=== PATIENT | male | born 1990 | race Caucasian/White ===

== ENCOUNTER 2018-05-10 11:59 | Inpatient (IN) | payer MEDICAID, SELFPAY ==
[2018-05-10 12:16] VITALS: BMI 23.6; BMI 24.0
[2018-05-10 12:39] VITALS: BP 118/57; PULSE 77; RESP 16; TEMP 37.3
[2018-05-10 12:54] VITALS: PULSE 77
--- NOTE | 2018-05-10 13:08 | PCM.HP.STD ---
Problem List (1) Acute opioid withdrawal Status: Acute (2) Asthma Status: Chronic Qualifiers: Asthma severity: mild Asthma persistence: intermittent Asthma complication type: unspecified Qualified Code(s): J45.20 - Mild intermittent asthma, uncomplicated History of Present Illness Date of Admission: 05/10/18 Chief Complaint: Acute opioid withdrawal The patient is a 27 year old M with PMHx of heroin abuse, asthma, alcohol use disorder who comes in with complains of nasal congestion, restlessness, lacrimation, sweating, yawning. Patient admits to using half to 1 g of heroin daily. Last used heroin yesterday. Denies any fever or chills. He feels nauseous but no vomiting, had a couple of loose stools. His admitting CINA score is 16. Per [facility] notes, patient plans to follow-up with inpatient rehabilitation at the [facility] in [facility]. His vitals on admission show temperature of 99.1F, heart rate 77, blood pressure 118/57, respiratory rate is 16. Past Medical History Past Medical History (Chronic Problems): Chronic Problems Asthma (Chronic) Allergies Penicillins Adverse Reaction (Verified 05/10/18 12:18) swell up , hives Home Medications: Ambulatory Orders Medication Instructions Recorded Albuterol Inhaler 1 puff 05/10/18 Surgical History: no surgical history Psychiatric History: No pertinent psych hx Lives: With Family Smoking Status: Current every day smoker Tobacco Use: Cigarettes Alcohol: Occasional Drugs: Heroin, Marijuana - *Family History Maternal History Items: No pertinent history Paternal History Items: No pertinent history Review of Systems Constitutional: Denies: Anorexia, Chills, Fever, Weakness, Weight Change Eyes: Denies: Blurred vision, Cataracts, Pain, Redness HEENT: Denies: Difficulty Swallowing, Head Aches, Hearing Changes, Sinus Congestion, Sinus Drainage Cardiovascular: Denies: Chest Pain, Claudication, Chest Pressure, Orthopnea, Palpitations, Paroxysmal Noc. Dyspnea Respiratory: Denies: Cough, Shortness of breath at rest, Sputum production Gastrointestinal: Denies: Abdominal Pain, Hematemesis, Hematochezia, Nausea, Vomiting Genitourinary: Denies: Dysuria, Frequency, Incontinence Musculoskeletal: Denies: Joint Pain, Joint Tenderness Skin: Denies: Rash, Wounds Neurological: Denies: Numbness, Tingling, Focal weakness Psychiatric: Denies: Anxiety, Depression, Homicidal Ideations, Suicidal Ideations Hematologic/ Lymphatic: Denies: Easy Bruising, Easy Bleeding VTE Information - Inpt Only VTE Present on Admission: No VTE Pharm Prophylaxis ordered?: Yes Patient Problems: Active and Suspected Problems Acute opioid withdrawal (Acute) - Physical Exam General: Alert, Oriented x3, Cooperative, - - looks to be having hot and cold flushes HEENT: Atraumatic, PERRLA, EOMI, Normocephalic Oral: Moist Mucosa Neck: Supple Lungs: Clear to auscultation, Normal air movement Cardiovascular: Regular rate, Regular Rhythm, Normal S1, Normal S2, No murmurs Abdomen: Bowel Sounds Present, Soft, Non Tender, Non-Distended, No Hepato-splenomegaly Extremities: No edema Skin: No rashes, No breakdown Musculoskeletal: No Tenderness to Palpation of Joints or Extremities Lymphatic: No Cervical, Supraclavicular, or Inguinal Adenopathy Neurological: Cranial nerves II-XII grossly intact, Neuro grossly intact Psych/Mental Status: Normal Affect, Appropriate Vital Signs Temp Pulse Resp BP 99.1 F 77 16 118/57 L 05/10/18 12:39 05/10/18 12:54 05/10/18 12:39 05/10/18 12:39 Weight: 79 kg Body Mass Index (BMI) 23.6 Assessment/Plan All Active Problems Acute opioid withdrawal (Acute) 27 year old M with PMHx of heroin abuse, asthma, alcohol use disorder who comes in with complains of nasal congestion, restlessness, lacrimation, sweating, yawning 1. Acute opioid withdrawal, in a known heroin user, Cina score of 16, Plan: Admit to MedSurg, monitor on a [facility] protocol, continue to monitor vitals closely 2. Polysubstance use, advised to quit 3. Nicotine dependence, on nicotine replacement 4. Alcohol use disorder, patient denies being a heavy user, advised to quit, will continue to monitor, if somethings worsen, will add CIWA and alcohol withdrawal protocol. 5. Asthma, no signs of acute exacerbation, will keep on as needed breathing treatments 6. DVT PPx- early ambulation. Code Visit Inpatient E&M: 10043 Init Hosp L2
--- NOTE | 2018-05-10 13:11 | HP.PCM_ITS ---
Problem List (1) Acute opioid withdrawal Status: Acute (2) Asthma Status: Chronic Qualifiers: Asthma severity: mild Asthma persistence: intermittent Asthma complication type: unspecified Qualified Code(s): J45.20 - Mild intermittent asthma, uncomplicated History of Present Illness Date of Admission: 05/10/18 Chief Complaint: Acute opioid withdrawal The patient is a 27 year old M with PMHx of heroin abuse, asthma, alcohol use disorder who comes in with complains of nasal congestion, restlessness, lacrimation, sweating, yawning. Patient admits to using half to 1 g of heroin daily. Last used heroin yesterday. Denies any fever or chills. He feels nauseous but no vomiting, had a couple of loose stools. His admitting CINA score is 16. Per [facility] notes, patient plans to follow- up with inpatient rehabilitation at the [facility] in [facility]. His vitals on admission show temperature of 99.1F, heart rate 77, blood pressure 118/57, respiratory rate is 16. Past Medical History Past Medical History (Chronic Problems): Chronic Problems Asthma (Chronic) Allergies Penicillins Adverse Reaction (Verified 05/10/18 12:18) swell up , hives Home Medications: Ambulatory Orders Medication Instructions Recorded Albuterol Inhaler 1 puff 05/10/18 Surgical History: no surgical history Psychiatric History: No pertinent psych hx Lives: With Family Smoking Status: Current every day smoker Tobacco Use: Cigarettes Alcohol: Occasional Drugs: Heroin, Marijuana - *Family History Maternal History Items: No pertinent history Paternal History Items: No pertinent history Review of Systems Constitutional: Denies: Anorexia, Chills, Fever, Weakness, Weight Change Eyes: Denies: Blurred vision, Cataracts, Pain, Redness HEENT: Denies: Difficulty Swallowing, Head Aches, Hearing Changes, Sinus Congestion, Sinus Drainage Cardiovascular: Denies: Chest Pain, Claudication, Chest Pressure, Orthopnea, Palpitations, Paroxysmal Noc. Dyspnea Respiratory: Denies: Cough, Shortness of breath at rest, Sputum production Gastrointestinal: Denies: Abdominal Pain, Hematemesis, Hematochezia, Nausea, Vomiting Genitourinary: Denies: Dysuria, Frequency, Incontinence Musculoskeletal: Denies: Joint Pain, Joint Tenderness Skin: Denies: Rash, Wounds Neurological: Denies: Numbness, Tingling, Focal weakness Psychiatric: Denies: Anxiety, Depression, Homicidal Ideations, Suicidal Ideations Hematologic/ Lymphatic: Denies: Easy Bruising, Easy Bleeding VTE Information - Inpt Only VTE Present on Admission: No VTE Pharm Prophylaxis ordered?: Yes Patient Problems: Active and Suspected Problems Acute opioid withdrawal (Acute) - Physical Exam General: Alert, Oriented x3, Cooperative, - - looks to be having hot and cold flushes HEENT: Atraumatic, PERRLA, EOMI, Normocephalic Oral: Moist Mucosa Neck: Supple Lungs: Clear to auscultation, Normal air movement Cardiovascular: Regular rate, Regular Rhythm, Normal S1, Normal S2, No murmurs Abdomen: Bowel Sounds Present, Soft, Non Tender, Non-Distended, No Hepato- splenomegaly Extremities: No edema Skin: No rashes, No breakdown Musculoskeletal: No Tenderness to Palpation of Joints or Extremities Lymphatic: No Cervical, Supraclavicular, or Inguinal Adenopathy Neurological: Cranial nerves II-XII grossly intact, Neuro grossly intact Psych/Mental Status: Normal Affect, Appropriate Vital Signs Temp Pulse Resp BP 99.1 F 77 16 118/57 L 05/10/18 12:39 05/10/18 12:54 05/10/18 12:39 05/10/18 12:39 Weight: 79 kg Body Mass Index (BMI) 23.6 Assessment/Plan All Active Problems Acute opioid withdrawal (Acute) 27 year old M with PMHx of heroin abuse, asthma, alcohol use disorder who comes in with complains of nasal congestion, restlessness, lacrimation, sweating, yawning 1. Acute opioid withdrawal, in a known heroin user, Cina score of 16, Plan: Admit to MedSurg, monitor on a [facility] protocol, continue to monitor vitals closely 2. Polysubstance use, advised to quit 3. Nicotine dependence, on nicotine replacement 4. Alcohol use disorder, patient denies being a heavy user, advised to quit, will continue to monitor, if somethings worsen, will add CIWA and alcohol withdrawal protocol. 5. Asthma, no signs of acute exacerbation, will keep on as needed breathing treatments 6. DVT PPx- early ambulation. Code Visit Inpatient E&M: 89413 Init Hosp L2
[2018-05-10] MEDS: Buprenorphine HCl 2 MG TAB.SUBL SL ×2 (13:14→21:57)
[2018-05-10] MEDS: hydrOXYzine PAM 25 MG Capsule 50 MG PO ×2 (13:15→22:12)
[2018-05-10] MEDS: Dicyclomine 10 MG Capsule 20 MG PO (13:15)
[2018-05-10] MEDS: cloNIDine HCl 0.1 MG Tablet PO ×2 (13:15→22:12)
[2018-05-10] MEDS: Methocarbamol 750 MG Tablet PO ×2 (13:15→22:12)
[2018-05-10 13:33] LABS: Absolute Lymphocyte Count 2.67 X10^3/ul (0.83-4.51); Absolute Neutrophil Count 10.3 X10^3/uL (2.0-7.7); Basophil# 0.03 X10^3/uL; Basophil% 0.2 % (0-1); Eosinophil# 0.18 X10^3/uL; Eosinophils% 1.3 % (0-5); Hematocrit 37.1 % (40-54); Hemoglobin 12.9 g/dl (13.0-16.5); Lymphocyte # 2.67 X10^3/ul (4.0); Lymphocyte % 19.3 % (19-41); Mean Corp Hgb Conc 34.8 g/gl (32-36); Mean Corpuscular Volume 86.3 fL (80-94); Mean Platelet Vol. 10.4 fl (6.2-12.0); Monocyte# 0.69 X10^3/uL; Neutrophil # 10.28 X10^3/uL (2.7-7.7); Neutrophil % 74.1 % (47-70); Platelet Count 200 K/mm3 (150-450); RBC Distribution Width CV 12.8 % (11.6-14.6); RBC Distribution Width SD 40.5 fl (35.1-43.9); White Blood Count 13.9 K/mm3 (4.4-11.0)
[2018-05-10 13:42] LABS: POSITIVE COUNT NO; POSITIVE DIFFERENTIAL NO; POSITIVE MORPHOLOGY NO
[2018-05-10 13:48] LABS: AST(SGOT) 42 U/L (15-37); Alanine Aminotransfer ALT/SGPT 70 U/L (16-61); Albumin, Serum 3.7 g/dL (3.2-5.0); Alkaline Phosphatase 113 U/L (45-117); Anion Gap 6 (5-15); BUN 11 mg/dL (7-18); BUN/Creat Ratio 11.6 RATIO (10-20); Calcium,Total 8.4 mg/dL (8.5-10.1); Chloride 99 mmol/L (98-107); Creatinine, Serum 0.95 mg/dL (0.70-1.30); EST Glomerular Filtration Rate 100 mL/min (>60); Est Glom Filt Rate - Afr Amer 121 mL/min (>60); Estimated Creatinine Clearance 127.06 ml/min; Globulin 3.8 g/dL (2.2-4.2); Glucose 106 mg/dL (74-106); Potassium 3.4 mmol/L (3.5-5.1); Protein, Total 7.5 g/dL (6.4-8.2); Sodium Level 134 mmol/L (136-145)
[2018-05-10 15:34] VITALS: BP 117/59; PULSE 83; RESP 16; TEMP 37
[2018-05-10 18:00] VITALS: BP 129/71; PULSE 87; RESP 16; TEMP 37.5
[2018-05-10 21:56] VITALS: BP 122/63; PULSE 76; RESP 16; TEMP 36.9; O2SAT 100
[2018-05-10 21:57] VITALS: BP 122/63; PULSE 76; RESP 16; TEMP 36.9
[2018-05-10] MEDS: Pramipexole Di-HCl 0.25 MG Tablet PO (22:12)
[2018-05-10] MEDS: Acetaminophen 325 MG Tablet 650 MG PO (22:12)
[2018-05-11 02:25] VITALS: BP 113/64; PULSE 76; RESP 16; TEMP 36.8
[2018-05-11] MEDS: Dicyclomine 10 MG Capsule 20 MG PO ×2 (02:30→10:12)
[2018-05-11] MEDS: cloNIDine HCl 0.1 MG Tablet PO ×3 (02:30→10:12)
[2018-05-11] MEDS: Buprenorphine HCl 2 MG TAB.SUBL SL ×2 (05:31→13:00)
[2018-05-11 05:32] VITALS: BP 118/58; PULSE 72; RESP 16; TEMP 36.6; O2SAT 100
[2018-05-11 05:34] VITALS: BP 118/58; PULSE 72; RESP 16; TEMP 36.6
[2018-05-11] MEDS: hydrOXYzine PAM 25 MG Capsule 50 MG PO ×2 (05:36→13:00)
[2018-05-11] MEDS: Acetaminophen 325 MG Tablet 650 MG PO (05:36)
[2018-05-11] MEDS: Methocarbamol 750 MG Tablet PO ×2 (05:36→13:00)
[2018-05-11 08:30] LABS: Absolute Lymphocyte Count 3.27 X10^3/ul (0.83-4.51); Absolute Neutrophil Count 4.8 X10^3/uL (2.0-7.7); Basophil# 0.05 X10^3/uL; Basophil% 0.5 % (0-1); Eosinophil# 0.26 X10^3/uL; Eosinophils% 2.8 % (0-5); Hematocrit 43.3 % (40-54); Hemoglobin 14.7 g/dl (13.0-16.5); Lymphocyte # 3.27 X10^3/ul (4.0); Lymphocyte % 35.1 % (19-41); Mean Corp Hgb Conc 33.9 g/gl (32-36); Mean Corpuscular Hgb 29.5 pg (27.0-32.0); Mean Corpuscular Volume 86.8 fL (80-94); Mean Platelet Vol. 10.8 fl (6.2-12.0); Monocyte# 0.95 X10^3/uL; Monocyte% 10.2 % (0-10); Neutrophil # 4.77 X10^3/uL (2.7-7.7); Neutrophil % 51.2 % (47-70); Platelet Count 222 K/mm3 (150-450); RBC Distribution Width CV 12.9 % (11.6-14.6); RBC Distribution Width SD 41.2 fl (35.1-43.9); Red Blood Count 4.99 M/mm3 (4.6-6.2); White Blood Count 9.3 K/mm3 (4.4-11.0)
[2018-05-11 08:31] LABS: Differential Indicated SCAN CRITERIA MET; POSITIVE COUNT NO; POSITIVE DIFFERENTIAL NO; POSITIVE MORPHOLOGY YES
[2018-05-11 08:40] LABS: Anion Gap 9 (5-15); BUN 13 mg/dL (7-18); BUN/Creat Ratio 14.2 RATIO (10-20); Chloride 105 mmol/L (98-107); Creatinine, Serum 0.92 mg/dL (0.70-1.30); EST Glomerular Filtration Rate 104 mL/min (>60); Est Glom Filt Rate - Afr Amer 126 mL/min (>60); Estimated Creatinine Clearance 131.21 ml/min; Glucose 120 mg/dL (74-106); Potassium 4.4 mmol/L (3.5-5.1); Sodium Level 143 mmol/L (136-145)
[2018-05-11 08:54] LABS: Atypical Lymphocyte 1+ %; Differential Comment SCANNED
--- NOTE | 2018-05-11 09:14 | PCM.PN.HOSP ---
Patient Problems: Active and Suspected Problems Acute opioid withdrawal (Acute) Subjective: Patient was seen and examined. Complains of generalized muscle aches, restless legs, hot and cold flashes. Denies any fever or chills or nausea or vomiting. No acute events overnight. Vitals/I&O's: Vital Signs Temp Pulse Resp BP Pulse Ox 97.8 F 72 16 118/58 L 100 05/11/18 05:34 05/11/18 05:34 05/11/18 05:34 05/11/18 05:34 05/11/18 05:32 Oxygen Delivery Method Room Air Weight: 79 kg Body Mass Index (BMI) 23.6 Intake and Output for Last 24 Hours 05/09/18 05/10/18 05/11/18 23:59 23:59 23:59 Intake Total 360 / 360 990 / 990 Balance 360 / 360 990 / 990 General: Alert, Oriented x3, Cooperative, No apparent distress HEENT: Atraumatic, PERRLA, EOMI, Normocephalic Oral: Moist Mucosa Neck: Supple, No JVD, Negative Carotid Bruits Lungs: Clear to auscultation, Normal air movement Cardiovascular: Regular rate, Regular Rhythm, Normal S1, Normal S2, No murmurs Abdomen: Bowel Sounds Present, Soft, Non Tender, Non-Distended, No Hepato-splenomegaly Extremities: No edema Skin: No rashes, No breakdown Musculoskeletal: No Tenderness to Palpation of Joints or Extremities Lymphatic: No Cervical, Supraclavicular, or Inguinal Adenopathy Neurological: Cranial nerves II-XII grossly intact, Neuro grossly intact Psych/Mental Status: Normal Affect, Appropriate Laboratory Results 05/10/18 13:20: WBC 13.9 H, RBC 4.30 L, Hgb 12.9 L, Hct 37.1 L, MCV 86.3, MCH 30.0, MCHC 34.8, RDW 12.8, RDW Differential 40.5, Plt Count 200, MPV 10.4, Immature Gran % (Auto) 0.100, Neut % (Auto) 74.1 H, Lymph % (Auto) 19.3, [place] % (Auto) 5.0, Eos % (Auto) 1.3, Baso % (Auto) 0.2, Absolute Neuts (auto) 10.3 H, Absolute Lymphs (auto) 2.67, Total Counted Not Reportable 05/10/18 13:20: Sodium 134 L, Potassium 3.4 L, Chloride 99, Carbon Dioxide 29.0, Anion Gap 6, BUN 11, Creatinine 0.95, Estim Creat Clear Calc 127.06, Est GFR (MDRD) Af Amer 121, Est GFR (MDRD) Non-Af 100, BUN/Creatinine Ratio 11.6, Glucose 106, Calcium 8.4 L, Total Bilirubin 0.70, AST 42 H, ALT 70 H, Alkaline Phosphatase 113, Total Protein 7.5, Albumin 3.7, Globulin 3.8, Albumin/Globulin Ratio 1.0 05/11/18 07:55: WBC 9.3, RBC 4.99, Hgb 14.7, Hct 43.3, MCV 86.8, MCH 29.5, MCHC 33.9, RDW 12.9, RDW Differential 41.2, Plt Count 222, MPV 10.8, Immature Gran % (Auto) 0.200, Neut % (Auto) 51.2, Lymph % (Auto) 35.1, [place] % (Auto) 10.2 H, Eos % (Auto) 2.8, Baso % (Auto) 0.5, Absolute Neuts (auto) 4.8, Absolute Lymphs (auto) 3.27, Total Counted Not Reportable, Differential Comment SCANNED, Atypical Lymphocytes 1+ 05/11/18 07:55: Sodium 143, Potassium 4.4, Chloride 105, Carbon Dioxide 29.0, Anion Gap 9, BUN 13, Creatinine 0.92, Estim Creat Clear Calc 131.21, Est GFR (MDRD) Af Amer 126, Est GFR (MDRD) Non-Af 104, BUN/Creatinine Ratio 14.2, Glucose 120 H, Calcium 9.0 Current Medications Acetaminophen (Tylenol) 650 mg PO Q6H PRN PRN PRN Reason: Mild Pain (1-3)/Temp > 100.7 F Last Admin: 05/11/18 05:36 Dose: 650 mg Bisacodyl (Dulcolax) 5 mg PO DAILY PRN PRN PRN Reason: Constipation Buprenorphine HCl (Buprenorphine Hcl) 4 mg SL Q8H SYLWIA; Taper Stop: 05/13/18 17:29 Last Admin: 05/11/18 05:31 Dose: 4 mg Clonidine (Catapres) 0.1 mg PO Q2H PRN PRN PRN Reason: Hot/Cold Sweats or Anxiety Last Admin: 05/11/18 05:36 Dose: 0.1 mg Dicyclomine HCl (Bentyl) 20 mg PO Q6H PRN PRN PRN Reason: Abdomnial Discomfort Last Admin: 05/11/18 02:30 Dose: 20 mg Hydroxyzine Pamoate (Vistaril Pamoate Capsule) 50 mg PO Q6H PRN PRN PRN Reason: Mild Anxiety Last Admin: 05/11/18 05:36 Dose: 50 mg Magnesium Hydroxide (Milk Of Magnesia) 30 ml PO DAILY PRN PRN PRN Reason: Constipation Methocarbamol (Methocarbamol) 750 mg PO Q6H PRN PRN PRN Reason: Muscle Aches Last Admin: 05/11/18 05:36 Dose: 750 mg Nicotine (Nicoderm Cq (Pbkc)) 21 mg TRANSDERM. DAILY SYLWIA Last Admin: 05/10/18 13:15 Dose: 21 mg Ondansetron HCl (Zofran Odt) 4 mg PO Q6H PRN PRN PRN Reason: NAUSEA Pramipexole Dihydrochloride (Mirapex) 0.25 mg PO Q12H PRN PRN PRN Reason: Restless Legs Last Admin: 05/10/18 22:12 Dose: 0.25 mg Psyllium Hydrophilic Mucilloid (Metamucil) 1 packet PO DAILY PRN PRN PRN Reason: CONSTIPATION Medical Necessity - Tobacco Use Smoking Status: Current every day smoker Tobacco Use: Cigarettes Assessment/Plan All Active Problems Acute opioid withdrawal (Acute) 27 year old M with PMHx of heroin abuse, asthma, alcohol use disorder who comes in with complains of nasal congestion, restlessness, lacrimation, sweating, yawning 1. Acute opioid withdrawal, in a known heroin user, improving, his CINA score is 5 Plan: Continue to monitor on the [facility] protocol 2. Polysubstance use, advised to quit 3. Nicotine dependence, on nicotine replacement 4. Alcohol use disorder, patient denies being a heavy user, advised to quit, will continue to monitor, if somethings worsen, will add CIWA and alcohol withdrawal protocol. 5. Asthma, no signs of acute exacerbation, will keep on as needed breathing treatments 6. DVT PPx- early ambulation. Code Visit Inpatient E&M: 58996 Subs Hosp L2
[2018-05-11 10:00] VITALS: BP 115/70; PULSE 67; RESP 16; TEMP 36.5
[2018-05-11] MEDS: Pramipexole Di-HCl 0.25 MG Tablet PO (10:12)
[2018-05-11 13:01] VITALS: BP 105/62; PULSE 50; RESP 18; TEMP 36.4
--- NOTE | 2018-05-11 17:11 | NURSING ---
Pt asking how he can leave this building. Encouraged pt that if he left he would be leaving [facility] and would not be able to re- enter [facility] program for 90 days. Encouraged pt to consider staying to finish the program to prevent relapse. Pt states i know but i just want to go home. Talking with physician that pt is wanting to leave ama, pt again educated and talked to to attempt to get patient to stay. Pt currently charging phone and then going to attempt to call for a ride
== END 2018-05-11 18:51 | disposition left against medical advice (07) | DRG 770 ==
PROVIDERS: Admitting Provider Internal Medicine; Referring Provider Internal Medicine; Visit Provider Internal Medicine
DX: F11.23 Opioid dependence with withdrawal (principal); J45.20 Mild intermittent asthma, uncomplicated; F17.210 Nicotine dependence, cigarettes, uncomplicated
CPT/HCPCS: 36415; 80048; 80053; 85025